=== PATIENT | female | born 1985 | race Two or more races ===

== ENCOUNTER 2021-08-02 23:58 | Inpatient (IN) | payer MEDICAID, OTHER ==
[~2021-08-02] VITALS: Ht 152.4 cm; Wt 49.9 kg
--- NOTE | 2021-08-03 00:10 | NUR ---
PATIENT [id number] FROM THE STREETS C/O "RIGHT THIGH DOG BITE S/P 3 DAYS AGO AND GOT INFECTED". PATIENT IS A/O X 3, RR EVEN AND UNLABORED, NO SOB NOTED. PATIENT TAKEN TO ER BED 13. PATIENT CONNECTED TO RAPIER INSERTION LOOM FIXER AND POX MONITOR.
[2021-08-03] MEDS ORDERED: PIPERACILLIN /TAZOBACTAM 2.25 G VIAL IV ONE (00:59)
[2021-08-03] MEDS ORDERED: RABIES IMMUNE GLOBULIN/PF 150 UNIT/ML VIAL IM ONE (01:00)
[2021-08-03] MEDS ORDERED: PIPERACILLIN /TAZOBACTAM 2.25 G in IV D5W 50 ML IV ONE (01:00)
[2021-08-03] MEDS ORDERED: TDAP [DIPH/PERTUSSIS/TET] 0.5 ML VIAL IM ONE (01:00)
[2021-08-03 01:13] LABS: BASOPHILS # (AUTO) 0.1 K/uL (0.0-0.2); BASOPHILS % (AUTO) 0.7 % (0.0-2.0); EOSINOPHILS % (AUTO) 1.6 % (0.0-6.0); HEMATOCRIT 30 % (33-45); HEMOGLOBIN 9.3 g/dL (11.5-14.8); LYMPHOCYTES # (AUTO) 1.4 K/uL (0.8-4.8); MEAN CORPUSCULAR HGB CONC 31 g/dl (31.0-36.0); MEAN CORPUSCULAR VOLUME 69 fL (82-100); MONOCYTES # (AUTO) 0.7 K/uL (0.1-1.30); MONOCYTES % (AUTO) 7.8 % (2.0-12.0); NEUTROPHILS # (AUTO) 6.8 K/uL (1.8-8.9); NEUTROPHILS % (AUTO) 74.9 % (43.0-81.0); PLATELET COUNT (AUTO) 451 K/uL (150-450); RED BLOOD CELL COUNT(AUTO) 4.33 MIL/uL (4.0-5.2); WHITE BLOOD COUNT (AUTO) 9.1 K/uL (4.3-11.0)
--- NOTE | 2021-08-03 01:15 | NUR ---
MANAGER SECURITY AT PT'S BEDSIDE
[2021-08-03 01:25] LABS: CALCIUM, SERUM 8.5 mg/dL (8.5-10.1); CREATININE 0.6 mg/dL (0.6-1.3)
--- NOTE | 2021-08-03 02:58 | NUR ---
BED ASSIGNMENT: 316-2
[2021-08-03] MEDS ORDERED: MAGNESIUM HYDROXIDE 30 ML UDC PO PRN (03:00)
[2021-08-03] MEDS ORDERED: ONDANSETRON HCL/PF 4 MG/2 ML VIAL IVP PRN (03:00)
[2021-08-03] MEDS ORDERED: IV NS 0.9% 1,000 ML IV PRN (03:00)
[2021-08-03] MEDS ORDERED: POTASSIUM CHLORIDE 20 MEQ TAB.PRT.SR PO ONE (03:00)
[2021-08-03] MEDS ORDERED: MORPHINE SULFATE INJ 2 MG/ML DISP.SYRIN IV PRN (03:00)
[2021-08-03] MEDS ORDERED: Z GUARD REMEDY 4 OZ OINT TP PRN (03:00)
[2021-08-03] MEDS ORDERED: HYDROCODONE/APAP 5/325MG TABLET PO PRN (03:00)
[2021-08-03] MEDS ORDERED: MAG HYDROX/AL HYDROX/SIMETH 30 ML UDC PO PRN (03:00)
--- NOTE | 2021-08-03 03:20 | NUR ---
REPORT GIVEN TO THERESA CHRISTOPHER
--- NOTE | 2021-08-03 03:27 | NUR ---
PT TRANSFERRING TO [facility] VIA HOSPITAL PROTOCOL. ALL BELONGINGS WITH PT. VSS.
[2021-08-03] MEDS ORDERED: VANCOMYCIN 1 GM in IV D5W 250ml IV ONE (03:30)
[2021-08-03 03:40] VITALS: BP 137/83
[2021-08-03 03:45] VITALS: BP 137/83
[2021-08-03] MEDS ORDERED: VANCOMYCIN 1 GM VIAL ONE (03:45)
--- NOTE | 2021-08-03 04:00 | NUR ---
MS BALLISTICS TEACHER NOTE RECEIVED 36 YRS OLD FEMALE PATIENT FROM [facility] TRANSPORTED ON A GURNEY, ACCOMPANIED BY 2 NURSES. PATIENT IS ALERT AND ORIENTED X 2 WITH EPISODES OF CONFUSION AND FORGETFULNESS. PATIENT HAS RIGHT THIGH OPEN WOUND AND DIAGNOSED WITH INFECTED DOG BITE. PATIENT IS ON ROOM AIR, WITH EQUAL AND UNLABORED BREATHING, NO SIGNS OF DISTRESS. PATIENT WITH IV ACCESS TO RAC # 18, PATENT AND INTACT. NOTED SWOLLEN RIGHT MIDDLE FINGER, LEFT POSTERIOR FOREARM SCAR. PATIENT REFUSED TO BE FULLY ASSESSED ON HER RIGHT SIDE OF HER BODY AT THIS TIME. COMFORT MEASURES PROVIDED. SAFETY MEASURES ENFORCED WITH BED ON LOCKED AND LOWEST POSITION, SIDE RAILS RAISED AND CALL LIGHT WITHIN REACH AT ALL TIMES. MEDICATION ORDERS WERE PLACED IN BY MIKHAIL PULLIAM. WILL CONTINUE TO MONITOR PATIENT FOR ANY CHANGE OF CONDITION.
--- NOTE | 2021-08-03 04:05 | NUR ---
MS RN NOTE: INSERTED DECKER CATHETER INSERTED DECKER CATHETER 16 FR, PATIENT TOLERATED THE PROCEDURE WELL. NO COMPLICATIONS NOTED.
--- NOTE | 2021-08-03 04:33 | NUR ---
MS RN NOTE PER CONCRETE GUN OPERATOR, RABIES INJECTION WILL BE GIVEN DURING AM SHIFT SINCE RABIES INJECTION IS UNAVAILABLE AT THIS TIME. RABIES INJECTION WILL BE DELIVERED TO THE UNIT ONCE PHARMACY IS OPEN. WILL ENDORSE TO AM RN TO FOLLOW UP WITH PHARMACY IN AM.
[2021-08-03 05:50] LABS: BASOPHILS # (AUTO) 0.1 K/uL (0.0-0.2); BASOPHILS % (AUTO) 0.6 % (0.0-2.0); EOSINOPHILS % (AUTO) 1.7 % (0.0-6.0); HEMATOCRIT 25 % (33-45); HEMOGLOBIN 7.9 g/dL (11.5-14.8); LYMPHOCYTES # (AUTO) 1.3 K/uL (0.8-4.8); LYMPHOCYTES % (AUTO) 14.2 % (20.0-44.0); MEAN CORPUSCULAR HGB CONC 32 g/dl (31.0-36.0); MEAN CORPUSCULAR VOLUME 69 fL (82-100); MONOCYTES # (AUTO) 0.9 K/uL (0.1-1.30); MONOCYTES % (AUTO) 9.9 % (2.0-12.0); NEUTROPHILS # (AUTO) 6.7 K/uL (1.8-8.9); NEUTROPHILS % (AUTO) 73.6 % (43.0-81.0); PLATELET COUNT (AUTO) 400 K/uL (150-450); RED BLOOD CELL COUNT(AUTO) 3.67 MIL/uL (4.0-5.2); WHITE BLOOD COUNT (AUTO) 9.1 K/uL (4.3-11.0)
--- NOTE | 2021-08-03 06:52 | NUR ---
MS RN NOTE PHARMACY CALLED TO INFORM TO START ANOTHER IV LINE ON THE PATIENT. ENDORSED TO AM RN TO FOLLOW UP.
[2021-08-03] MEDS ORDERED: PIPERACILLIN /TAZOBACTAM 3.375 G in IV D5W 50 ML IV SCH (06:56)
--- NOTE | 2021-08-03 07:35 | NUR ---
MS/RN OPENING NOTES RECEIVED PATIENT IN BED, ASLEEP BUT EASILY AROUSED. PATIENT IS ALERT AND ORIENTED X1-2 WITH PERIODS OF CONFUSION. ABLE TO MAKE NEEDS KNOWN. STABLE ON ROOM AIR. BANDAGE ON RIGHT THIGH IS CLEAN AND INTACT THIS TIME. IV ACCESS ON RIGHT AC #18G IS INTACT AND PATENT WITH A RUNNING IV NS @75ML/HR. SAFETY MEASURES IN PLACED: BED LOCKED ON LOWEST POSITION, SIDE RAILS UPX2, CALL LIGHT WITHIN EASY REACH. WILL CONTINUE WITH THE PLAN OF CARE.
[2021-08-03 07:44] LABS: BILIRUBIN,TOTAL 0.1 mg/dL (0.2-1.0); CALCIUM, SERUM 8.2 mg/dL (8.5-10.1); CREATININE 0.5 mg/dL (0.6-1.3); MAGNESIUM 1.8 mg/dL (1.8-2.4); PHOSPHORUS 3.8 mg/dL (2.5-4.9); POTASSIUM 3.1 mmol/L (3.5-5.1); TOTAL PROTEIN, SERUM 6.3 g/dL (6.4-8.2)
[2021-08-03 08:00] VITALS: BP 144/75
[2021-08-03] MEDS: PIPERACILLIN /TAZOBACTAM 3.375 G in IV D5W 100 ML IV SCH ×2 (08:37→16:50)
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
[2021-08-03 09:07] LABS: THYROID STIMULATING HORMONE 1.187 uIU/mL (0.358-3.74)
[2021-08-03] MEDS: POTASSIUM CHLORIDE 20 MEQ TAB.PRT.SR PO SCH ×2 (11:53→12:32)
[2021-08-03] MEDS: VANCOMYCIN 1 GM in IV D5W 250 ML IV SCH ×2 (13:36→20:34)
--- NOTE | 2021-08-03 15:03 | NUR ---
"SS consult: SS Consult requested for homelessness. The pt. is a 36-year-old female patient who admitted to [facility] due to infected dog bite per EMR. Upon SS consult, the pt. is Alert & Oriented x 2 and extremely drowsy. Consequently, the pt. makes poor eye contact. The pt. appears disheveled and with euthymic mood. Pt.s speech is slightly slurred possibly due to drowsiness and has euthymic mood and affect. MILAGRO explored pt.s living situation. Patient Pt. states she has been experiencing homelessness for the past 2 years and stay at shelters. SW offered snf placement upon discharge and pt. accepted. MILAGRO explored pt.s drug & ETOH use. Pt. denies alcohol use and states she uses Meth 2x/daily. SW explored pt.s mental health Hx. Pt. could not stay awake and did not respond. Pt. denies current SI/HI and Pt. denies visual or auditory hallucinations. Per pt. she is not ambulatory due to dog bite. MILAGRO spoke with pt.s nurse, Alexia and requested PT consult. Pt. states she independent with all her ADLs. SW explored pt.s support system. Pt. states she has no support system. Plan: Pt. states she wants snf placement upon discharge. SW will follow up and place her at a snf and provide TAP card is needed. SW provided pt. with homeless resources and pt. accepted them. Pt. refused to sign homeless waiver and it was placed in the chart. MILAGRO discussed this case with Gale JOHNSON. Year-round shelters: [facility] [address], [place] [phone] ; [place] [facility] [address] [place] [address]; [place] [facility] [address] [facility] [address] Winter Shelters: SPA 2 | [facility] Rogeliovider: Angelina martinez the [place] Address: Confidential (call for location ) Population Served: Coed # of Beds: 57 SPA 4 | [facility] Provider: Home at Last Address: [address] [place] [address] # of Beds: 49 Population Served: Coed SPA 6 | [facility] Provider: Home at Last Address: [address] [facility] [place] [address] # of Beds: 49 Population Served: Coed [facility] Provider: Lela SMART Address: [address] [facility] [address] # of Beds: 20 Population Served: Women [facility] Facility Provider: Home at Last Address: [address] [facility] [address] # of Beds: 30 Population Served: Women SPA 8 | [facility] Provider: [place] of [place] Address: [address] [facility] [address] # of Beds: 65 Population Served: Coed Hygiene: [facility] Health[facility]: [address] [facility] ; [facility] [address] [facility] ; [facility] [address] [facility] . Food Resources: [facility]- [address] [facility]; Meet Each Need with Dignity ([facility]) [address] [facility]; [facility] [place] Food [facility] [address] [facility]; [facility] [address] [facility]. Mental Health resources provided: [facility] [address] [place] [address] ; [facility] [address] [facility] [address], [place] [address] ; Tanya Sandoval [facility] [address] [place] [address] ; [facility] [address] [place], [place] [phone] Healthcare Clinics: [facility] [address] [facility], [address] [place]. [place] ; [facility] [address] [facility] [address] [place] [address]; [facility] [address] [place] [address] [phone] Counseling--Outpatient [facility] [address] [facility], [address] [place], [place] [address] (Specializes in in-depth psychotherapy for emotional distress: anxiety, depression, interpersonal conflicts, life transitions, childhood abuse) [facility] [address] [place] [address] (Assist with solving problem marital difficulties, separation & divorce, aging parents, & grief, chronic & terminal illness) [facility] [address] [place] [address] (Deal with loss & grief, anxiety, marital difficulties) Homebound/Mental Health Services [address] [address] [facility] [address] [place] [address] (Provide in-home mental services to people who are incapable of leaving their homes) [facility] for Needs of the Elderly Senior Service/Resource Center [address] [place] [address] [facility] [address] [facility] [place] [address] PSYCHIATRIC OUTPATIENT SERVICES [facility] Partial Hospitalization and Intensive Outpatient Program (Managed Care and [place] Only)[address] [address]. [facility] [phone] [facility] Partial Hospitalization and Outpatient [id number] Santy [facility]. [address] [place], [place] [phone] [facility] [id number] [facility]. [address] [place], [place] [phone] [facility] Partial Hospitalization and Outpatient [id number] [place], [phone] Substance Abuse resources provided included: [facility] Substance Abuse Self-Helpline (SAS) ; CRI -HELP [address] [facility]. [place]. [place] [address] ; [facility] [address] [facility] [address] ; [facility] [address] [place] [address] ; [facility] [address] [facility] [phone] ; [facility] Treatment [facility] [address] [facility] [address] ; [place] [address] [facility] [phone] ; [facility] Substance Abuse Helpline([facility] ; [facility] ; [facility] [place]; [facility]; [facility] [place]; [facility] Demetris Staples; [facility] [place]; [facility] [place]; [facility] Shield[place]; [facility] [place]; Alcoholics Anonymous -SFV; Bf-Whvp-Mwfinga ; Marijuana Anonymous -SFV; Narcotics Anonymous www.na.org;"
[2021-08-03 16:00] VITALS: BP 137/87
--- NOTE | 2021-08-03 19:23 | NUR ---
MS/RN CLOSING NOTES PATIENT IN BED, ASLEEP BUT EASILY AROUSED. PATIENT IS ALERT AND ORIENTED X1-2 WITH PERIODS OF CONFUSION. ABLE TO MAKE NEEDS KNOWN. STABLE ON ROOM AIR. BANDAGE ON RIGHT THIGH IS CLEAN AND INTACT THIS TIME. IV ACCESS ON RIGHT AC #18G IS INTACT AND PATENT ON SALINE LOCK. ALL NEEDS MET. KEPT PATIENT COMFORTABLE. SAFETY MEASURES IN PLACED: BED LOCKED ON LOWEST POSITION, SIDE RAILS UPX2, CALL LIGHT WITHIN EASY REACH. WILL ENDORSE TO THE NEXT SHIFT FOR GABRIELLA.
--- NOTE | 2021-08-03 19:30 | NUR ---
RN OPENING NOTE PATIENT IN BED, SLEEPING. OPENS EYES SPONTANEOUSLY. PATIENT APPEARS TO BE DROWSY. PATIENT IS A/O X 2 AT THIS TIME. DRESSING PRESENT ON L THIGH WOUND C/DI. PATIENT HAS A DECKER CATHETER ON DRAINING YELLOW URINE VIA GRAVITY. PATIENT HAS A RAC 18 G PATENT AND INTACT. PATIENT DOES NOT COMPLAIN OF PAIN AT THIS TIME. SAFETY MEASURES IN PLACE: BED LOCKED AND IN LOWEST POSITION, CALL LIGHT WITHIN REACH, SIDE RAILS UP. WILL MONITOR PATIENT CLOSELY.
[2021-08-03 20:00] VITALS: BP 105/98
--- NOTE | 2021-08-03 22:16 | NUR ---
rn note morphine given for pain 01/05 on the r thigh- will reassess effectiveness at a a later time
[2021-08-03] MEDS: ACETAMINOPHEN 325 MG TABLET PO PRN (23:15)
--- NOTE | 2021-08-03 23:18 | NUR ---
RN NOTE TYLENOL GIVEN FOR HEADACHE
[2021-08-04] MEDS: PIPERACILLIN /TAZOBACTAM 3.375 G in IV D5W 100 ML IV SCH ×3 (00:01→18:53)
[2021-08-04] MEDS: VANCOMYCIN 1 GM in IV D5W 250 ML IV SCH ×3 (04:20→22:25)
[2021-08-04 06:20] LABS: BASOPHILS # (AUTO) 0.1 K/uL (0.0-0.2); BASOPHILS % (AUTO) 0.9 % (0.0-2.0); EOSINOPHILS % (AUTO) 2.4 % (0.0-6.0); HEMATOCRIT 29 % (33-45); HEMOGLOBIN 8.9 g/dL (11.5-14.8); LYMPHOCYTES % (AUTO) 25.5 % (20.0-44.0); MEAN CORPUSCULAR HGB CONC 31 g/dl (31.0-36.0); MEAN CORPUSCULAR VOLUME 70 fL (82-100); MONOCYTES # (AUTO) 0.6 K/uL (0.1-1.30); MONOCYTES % (AUTO) 7.8 % (2.0-12.0); NEUTROPHILS % (AUTO) 63.4 % (43.0-81.0); PLATELET COUNT (AUTO) 488 K/uL (150-450); RED BLOOD CELL COUNT(AUTO) 4.12 MIL/uL (4.0-5.2); WHITE BLOOD COUNT (AUTO) 7.9 K/uL (4.3-11.0)
[2021-08-04] MEDS ORDERED: SILVER NITRATE APPLICATOR 1 EA BOX TP SCH (06:30)
[2021-08-04] MEDS ORDERED: LIDOCAINE 1%-EPI 1:100,000 50 ML VIAL IJ ONE (06:30)
[2021-08-04 06:40] LABS: CALCIUM, SERUM 8.6 mg/dL (8.5-10.1); CREATININE 0.5 mg/dL (0.6-1.3); POTASSIUM 3.9 mmol/L (3.5-5.1)
--- NOTE | 2021-08-04 06:56 | NUR ---
RN CLOSING NOTE PATIENT IN BED, SLEEPING. OPENS EYES SPONTANEOUSLY. PATIENT IS A/O X 3 AT THIS TIME. SULEMANET CURRENTLY ON RA, TOLERATING WELL. DRESSING CHANGED ON L THIGH WOUND C/D/I. PATIENT HAS A DECKER CATHETER ON DRAINING YELLOW URINE VIA GRAVITY. PATIENT HAS A RAC 18 G PATENT AND INTACT WITH NS @ 75 ML/HR RUNNING. PATIENT DOES NOT COMPLAIN OF PAIN AT THIS TIME. SAFETY MEASURES IN PLACE: BED LOCKED AND IN LOWEST POSITION, CALL LIGHT WITHIN REACH, SIDE RAILS UP. ALL NEEDS MET AND ATTENDED. ALL ORDERS CARRIED OUT. WILL ENDORSE TO DAY SHIFT NURSE FOR GABRIELLA.
--- NOTE | 2021-08-04 08:06 | NUR ---
RN OPENING NOTES PATIENT AWAKE, A/O X2. NO S/S OF PAIN NOTED AT THIS TIME. PATIENT ON ROOM AIR, NO DISTRESS OR SHORTNESS OF BREATH. IV ACCESS RAC #18G, INTACT, PATENT AND FLUSHING WELL. FALL AND SAFETY MEASURES IN PLACE, BED ALARM ON, BED IN LOW AND LOCK POSITION, CALL LIGHT AND TABLE WITHIN EASY REACH, SIDE RAILS UP X2. WILL CONTINUE TO MONITOR.
[2021-08-04 08:20] VITALS: BP 126/89
[2021-08-04] MEDS: ACETAMINOPHEN 325 MG TABLET PO PRN ×2 (10:11→23:47)
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
[2021-08-04 16:13] VITALS: BP 115/81
[2021-08-04] MEDS ORDERED: DAKINS QUARTER STRENGTH (0.125%) 480 ML BOTTLE TOP SCH (16:30)
--- NOTE | 2021-08-04 19:30 | NUR ---
RN CLOSING NOTES PATIENT AWAKE, A/O X2-3. NO S/S OF PAIN NOTED AT THIS TIME. PATIENT ON ROOM AIR, NO DISTRESS OR SHORTNESS OF BREATH. IV ACCESS RAC #18G, INTACT, PATENT AND FLUSHING WELL. FALL AND SAFETY MEASURES IN PLACE, BED ALARM ON, BED IN LOW AND LOCK POSITION, CALL LIGHT AND TABLE WITHIN EASY REACH, SIDE RAILS UP X2. PATIENT IS CONFUSED AT TIMES, PATIENT REMOVED HER DECKER CATCHER AND WOUND DRESSING. PATIENT WOUND DRESSING WAS REDONE, PATIENT REFUSE THE DECKER CATCHER. WILL ENDORSE TO SENIOR ADMINISTRATOR SUPPORT.
[2021-08-04 19:52] VITALS: BP 115/75
--- NOTE | 2021-08-04 19:56 | NUR ---
RN OPENING NOTE PATIENT IN BED, AWAKE. PATIENT IS A/O X 3 AT THIS TIME. PATIENT CURRENTLY ON RA, TOLERATING WELL. DRESSING ON L THIGH WOUND C/D/I. PATIENT HAS A RAC 18 G PATENT AND INTACT WITH NS @ 75 ML/HR RUNNING AND IV ABX ON GOING. PATIENT DOES NOT COMPLAIN OF PAIN AT THIS TIME. SAFETY MEASURES IN PLACE: BED LOCKED AND IN LOWEST POSITION, CALL LIGHT WITHIN REACH, SIDE RAILS UP WILL MONITOR PATIENT CLOSELY.
--- NOTE | 2021-08-04 22:47 | NUR ---
RAC IV ACCESS PULLED OUT. LFA 20 G NEWLY INSERTED- PATENT AND INTACT. TYLENOL GIVEN FOR MILD HEADACHE
[2021-08-05] MEDS: PIPERACILLIN /TAZOBACTAM 3.375 G in IV D5W 100 ML IV SCH (01:06)
--- NOTE | 2021-08-05 03:30 | NUR ---
RN NOTE PATIENT STATES THAT THERE'S LITTLE SPIDERS CRAWLING ON HER SKIN AND THAT SHE DOES NOT FEEL COMFORTABLE HERE. SHE STATES THAT SHE HAS BEEN A MOBILE PATIENT BEFORE SO SHE WANTS TO GO TO MOBILE. BUT WANTS ANTIBIOTIC PRESCRIPTION FIRST. RN INFORMED PATIENT THAT IF SHE LEAVES AMA THAT MD WILL NOT GIVE PRESCRIPTION AND IF SHE WANTS TO WAIT FOR MD IN AM TO SPEAK WITH THEM. PATIENT AGREEABLE.
[2021-08-05] MEDS: VANCOMYCIN 1 GM in IV D5W 250 ML IV SCH (05:07)
--- NOTE | 2021-08-05 07:05 | NUR ---
RN CLOSING NOTE PATIENT IN BED, AWAKE. PATIENT IS A/O X 3 AT THIS TIME. PATIENT CURRENTLY ON RA, TOLERATING WELL. DRESSING ON L THIGH WOUND C/D/I. PATIENT HAS A LFA 20 G PATENT AND INTACT REFUSING IVF AT THIS TIME. PATIENT DOES NOT COMPLAIN OF PAIN AT THIS TIME. SAFETY MEASURES IN PLACE: BED LOCKED AND IN LOWEST POSITION, CALL LIGHT WITHIN REACH, SIDE RAILS UP.ALL NEEDS MET AND ATTENDED. ALL ORDERS CARRIED OUT. WILL ENDORSE TO DAY SHIFT NURSE FOR GABRIELLA.
--- NOTE | 2021-08-05 07:20 | NUR ---
DREDGE RUNNER OPENING NOTE PATIENT IS IN BED WITH EYES CLOSED, EASY TO AROUSE. A/O X 3. NO S/SX OF ACUTE DISTRESS NOTED. NO SOB. BREATHING IS EVEN AND UNLABORED. PT IS C/O 8/10 PAIN IN L LEG AND AND L HIP. IV ACCESS LAC#20 PATENT AND INTACT WITH D51/2 NS RUNNING @40MLS/HR. SAFETY MEASURES IN PLACE WITH BED LOCKED AT LOWEST POSITION AND SIDE RAILS UP X2. CALL LIGHT IS WITHIN REACH. WILL CONTINUE TO MONITOR PATIENT THROUGHOUT SHIFT.
[2021-08-05] MEDS ORDERED: SULF1TAB48 PO (07:56)
--- NOTE | 2021-08-05 08:20 | NUR ---
NURSE RESEARCH NOTE PT WAS DISCHARGED WITH STABLE VITAL SIGNS. NO SOB. NO S/SX OF DISTRESS. PT A/O X 4. BREATHING IS EVEN AND UNLABORED. DISCHARGE INSTRUCTIONS REVIEWED AND SIGNED WITH PATIENT. ALL QUESTIONS ANSWERED; PT VERBALIZED UNDERSTANDING.IV ACCESS REMOVED. ID BAND REMOVED. PT REFUSED PHOTOS OF WOUNDS. PT REFUSED TAXI OR BUS VOUCHER. PT STATED SHE HAS A BUS PASS AND CELL PHONE AND DOES NOT NEED HELP WITH TRANSPORTATION. PT LEFT UNIT AT THIS TIME. I OBSERVED PT LEAVE FACILITY.
--- NOTE | 2021-08-05 09:00 | NUR ---
DISCHARGE NOTE CALLED 6 PHARMACY TO HAVE THE INFORMATION AND PRESCRIPTION TRANSFERRED FROM [facility] TO 6 PHARMACY PER PATIENT REQUEST.
--- NOTE | 2021-08-05 11:57 | NUR ---
SW received call from pt.'s sister, Grace Morrow requesting update about pt.'s condition. Per Grace the pt. has told her that she has cancer. SW validated her concerns and notified Grace that pt. consent is required to disclose that information Grace expressed understanding. Per EMR, the pt. has already been discharged SW unable to get verbal consent.
== END 2021-08-05 08:30 | disposition home or self-care (01) | DRG 364 ==
LOC: ER 08-03 → MED 08-03 03:00
PROVIDERS: ADMIT Internal Medicine; ATTEND Internal Medicine
PROC: 0KBN0ZZ Excision of Right Hip Muscle, Open Approach (ICD-10-PCS; principal; 2021-08-04)
DX: L03.115 Cellulitis of right lower limb (principal); E43 Unspecified severe protein-calorie malnutrition; S71.151A Open bite, right thigh, initial encounter; E88.09 Other disorders of plasma-protein metabolism, not elsewhere classified; Z59.00 Homelessness unspecified; W54.0XXA Bitten by dog, initial encounter; Z95.0 Presence of cardiac pacemaker; Z68.21 Body mass index [BMI] 21.0-21.9, adult; E87.6 Hypokalemia; D50.9 Iron deficiency anemia, unspecified; Z20.3 Contact with and (suspected) exposure to rabies; Y93.9 Activity, unspecified; Y92.89 Other specified places as the place of occurrence of the external cause; Z20.822 Contact with and (suspected) exposure to COVID-19
CPT/HCPCS: 36415; 73552; 80048-TC; 80053-TC; 80202-TC; 83735-TC; 84100-TC; 84443-TC; 84703-TC; 85025-TC; 87040-TC; 87081-TC; 90375; 90715; A6253; A6403; C9803; G0378; J2270; J2543; J3370; J3490; J7030; J7060